=== PATIENT | female | born 1960 | race Caucasian/White ===

== ENCOUNTER 2016-12-24 14:01 | Outpatient (CLI) | payer BC | END 2016-12-24 14:02 | LOC: LAB 14:01 | PROVIDERS: ATTEND Family Medicine | DX: E03.9 Hypothyroidism, unspecified (principal) | CPT/HCPCS: 36415; 84443 ==

== ENCOUNTER 2017-03-19 13:33 | Outpatient (CLI) | payer BC | END 2017-03-19 13:34 | LOC: LAB 13:33 | PROVIDERS: ATTEND Family Medicine | DX: E03.9 Hypothyroidism, unspecified (principal) | CPT/HCPCS: 36415; 84443 ==

== ENCOUNTER 2017-05-21 13:23 | Outpatient (CLI) | payer BC ==
--- NOTE | 2017-05-21 14:33 | Diagnostic Imaging Report ---
ANTOLIN CAGLE [facility] [id number] [facility].[address] [id number] Report Submission Date: May 21, 2017 2:16:48 PM CDT Patient Study Name: MAGALY MAK Date: May 21, 2017 1:23:38 PM CDT Modality Type: CR Gender: F Description: UPPER EXTREMITY : 62 Institution: [facility] Physician: ANTOLIN CAGLE Examination: Plain film wrist History: Wrist discomfort Comparison exams: None available Findings: 3 views the wrist demonstrate normal cortical margins. No fracture. No dislocation. No soft tissue abnormality by film sensitivity. Impression: No osseous abnormality. If suspect soft tissue abnormality, consider obtaining MRI. Electronically signed on May 21, 2017 2:16:48 PM CDT by: Serafin HARRIS
== END 2017-05-21 13:24 ==
LOC: RAD 13:23
PROVIDERS: ATTEND Family Medicine
DX: M25.531 Pain in right wrist (principal)
CPT/HCPCS: 73110

== ENCOUNTER 2018-06-27 13:00 | Outpatient (CLI) | payer BC | END 2018-06-27 13:02 | LOC: LABRHC 13:00 | PROVIDERS: ATTEND Physician Assistant | DX: R30.0 Dysuria (principal) | CPT/HCPCS: 87086 ==